=== PATIENT | male | born 1995 | race Caucasian/White ===

== ENCOUNTER 2017-03-15 12:53 | Emergency (ER) | payer SELFPAY ==
[~2017-03-15] VITALS: Ht 188 cm; Wt 117.0 kg
[~2017-03-15 12:53] MED LIST: ALBU6.7H INH; CETI5TAB2 PO; CYCL5TAB PO; MIGRAINE MED PO; NAPR500 PO
[2017-03-15 12:56] VITALS: BP 131/67; PULSE 87; RESP 16; TEMP 97.9; O2SAT 98
[2017-03-15] MEDS ORDERED: ALBU2TAB4 PO (13:12)
[2017-03-15] MEDS ORDERED: MULT1TAB46 (13:12)
[2017-03-15] MEDS ORDERED: ALBU0.08 NEB (13:17)
--- NOTE | 2017-03-15 13:17 | PD ---
HPI Chief Complaint: Cold / Flu Symptoms Time Seen by Provider: 13:00 Travel History International Travel<30 days: No Contact w/Intl Traveler<30days: No Traveled to known affect area: No History of Present Illness HPI 21-year-old male with history of asthma here for evaluation of cough 1 year. Patient denies fever, chills, shortness of breath, chest pain, lower extremity swelling, fatigue. He is requesting refill of his albuterol nebulizer. Symptoms severity mild. No alleviating factors. PFSH Past Medical History Asthma: Yes Diminished Hearing: No Immunizations Current: Yes Migraines: Yes Tetanus Vaccination: > 5 Years Influenza Vaccination: Yes Past Surgical History Tonsillectomy: Yes Social History Alcohol Use: No Tobacco Use: No Substance Use: No Allergies-Medications (Allergen,Severity, Reaction): Coded Allergies: penicillin G (Unverified Allergy, Severe, Hives, 03/15/17) Reported Meds & Prescriptions Reported Meds & Active Scripts Active Flexeril (Cyclobenzaprine HCl) 5 Mg Tab 5 Mg PO BIDPRN UNKNOWN DOSE Naprosyn (Naproxen) 500 Mg Tab 500 Mg PO BIDPRN 30 Days Reported [Migraine Med] 1 Tab PO DIRECTED PRN Zyrtec (Cetirizine HCl) 5 Mg Tab 5 Mg PO DAILY Proventil Hfa (Albuterol Sulfate) 6.7 Gm Aero 0 INH Q4HPRN UNKNOWN DOSE Review of Systems Except as stated in HPI: all other systems reviewed are Neg General / Constitutional: No: Fever HENT: No: Headaches Cardiovascular: No: Chest Pain or Discomfort Respiratory: Positive: Cough Gastrointestinal: No: Abdominal Pain Physical Exam Narrative GENERAL: Well-nourished, well-developed patient. SKIN: Focused skin assessment warm/dry. HEAD: Normocephalic. EYES: No scleral icterus. No injection or drainage. NECK: Supple, trachea midline. No JVD or lymphadenopathy. CARDIOVASCULAR: Regular rate and rhythm without murmurs, gallops, or rubs. RESPIRATORY: Breath sounds equal bilaterally. No accessory muscle use. GASTROINTESTINAL: Abdomen soft, non-tender, nondistended. MUSCULOSKELETAL: No cyanosis, or edema. BACK: Nontender without obvious deformity. No CVA tenderness. Data Data Last Documented VS Vital Signs Date Time Temp Pulse Resp B/P (MAP) Pulse Ox O2 Delivery O2 Flow Rate FiO2 03/15/17 12:56 97.9 87 16 131/67 (88) 98 MDM Medical Decision Making Medical Screen Exam Complete: Yes Emergency Medical Condition: Yes Differential Diagnosis URI, asthma, bronchitis, pneumonia Narrative Course 21-year-old male here for evaluation of cough 1 year. Patient reports he's been seen in multiple urgent care clinics and diagnosed with bronchitis or URIs. He reports the antibiotics and prescriptions to give him have not improved cough. He denies fever, chills, shortness breath, chest pain, lower extremity swelling or exertional dyspnea. His physical exam is benign. He is well-appearing. His lungs sounds are clear bilaterally. His vital signs normal. He will be given a refill of his albuterol for his nebulizer to use when necessary and given information to follow up with local clinic Diagnosis Primary Impression: Cough Referrals: [facility] Scripts Albuterol Neb (Albuterol Neb) 2.5 Mg/3 Ml Neb 2.5 MG NEB QID NEB for Breathing Treatment, #60 NEBULE 0 Refills Prov: Shelley Cerda 03/15/17 Disposition: 01 DISCHARGE HOME Condition: Stable Shelley Cerda Mar 15, 2017 13:17
== END 2017-03-15 13:29 | disposition home or self-care (01) ==
LOC: PHEFT 12:53
DX: R05 Cough (principal); J45.909 Unspecified asthma, uncomplicated; Z88.0 Allergy status to penicillin; Z79.899 Other long term (current) drug therapy
CPT/HCPCS: 99283